=== PATIENT | female | born 2000 | race African-American/Black ===

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

== ENCOUNTER 2022-03-09 01:29 | Emergency (ER) | payer MEDICAID ==
[~2022-03-09] VITALS: Ht 162.6 cm; Wt 85.8 kg
[~2022-03-09 01:29] MED LIST: NAPR-1176 MT
[2022-03-09] MEDS ORDERED: CARB15DR63 EACH EAR (04:20)
[2022-03-09 04:40] VITALS: BP 122/75
== END 2022-03-09 04:47 | disposition home or self-care (01) ==
LOC: ER 01:29
DX: H61.22 Impacted cerumen, left ear (principal); H92.02 Otalgia, left ear; L85.3 Xerosis cutis
CPT/HCPCS: 99281